=== PATIENT | male | born 1970 | race Caucasian/White ===

== ENCOUNTER → 2021-01-02 | Outpatient (CLI) | payer OTHER ==
[~2021-01-02] MED LIST: NORVASC10 MG PO; PERCOCET 325 MG1 TA2 PO; PERCOCET 325 MG1 TA5 PO; PRILOSEC10 MG PO; [UNRECOGNIZED DRUG - REMARK]
== END | disposition home or self-care (01) ==
LOC: COVID19 11:42
PROVIDERS: ATTEND Family Medicine
DX: U07.1 COVID-19 (principal)

== ENCOUNTER 2022-11-21 09:02 | Emergency (ER) | payer OTHER ==
[~2022-11-21] VITALS: Ht 175.2 cm; Wt 108.9 kg
[2022-11-21] MEDS ORDERED: AMOX-CLAV 875-1 EACH PO (09:19)
== END 2022-11-21 09:53 | disposition home or self-care (01) ==
LOC: ED 09:02
DX: S91.052A Open bite, left ankle, initial encounter (principal); W54.0XXA Bitten by dog, initial encounter; Y93.89 Activity, other specified; Y92.89 Other specified places as the place of occurrence of the external cause; Y99.8 Other external cause status